=== PATIENT | male | born 1985 | race Caucasian/White ===

== ENCOUNTER 2021-01-03 15:54 | Emergency (ER) | payer SELFPAY ==
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
[2021-01-03 16:41] LABS: Basophils % 0.7 % (0-1.3); Hematocrit 43.7 % (39.6-49.0); Lymphocytes % 12.8 % (15.3-44.8); MPV 7.2 fL (7.6-11.3); RBC Red Blood Cell Count 4.73 M/uL (4.33-5.43)
[2021-01-03 17:01] LABS: ALT/SGPT 22 U/L (12-78); Albumin 3.3 g/dL (3.4-5.0); Alkaline Phosphatase 92 U/L (45-117); BUN Blood Urea Nitrogen 7 mg/dL (7-18); Bicarbonate 29 mmol/L (21-32); Bilirubin Direct < 0.1 mg/dL (0-0.2); Bilirubin Total 0.3 mg/dL (0.2-1.0); Glucose Level 127 mg/dL (74-106); Lipase 44 U/L (73-393); Protein, Total 7.8 g/dL (6.4-8.2); Sodium Level 137 mmol/L (136-145)
[2021-01-03 17:02] LABS: AST/SGOT 20 U/L (15-37); Potassium 4.2 mmol/L (3.5-5.1)
[2021-01-03] MEDS ORDERED: ONDANSETRON 4 MG/2 ML VIAL ONE (17:25)
[2021-01-03] MEDS ORDERED: FENTANYL CITR 100 MCG/2 ML ONE (17:25)
--- NOTE | 2021-01-03 17:45 | RAD REPORT ---
EXAM DESCRIPTION: CTAbdomen Pelvis W Contrast - 01/03/2021 5:28 pm CLINICAL HISTORY: Abdominal pain. lower abdominal pain COMPARISON: No comparisons TECHNIQUE: Biphasic CT imaging of the abdomen and pelvis was performed with 100 ml non-ionic IV cont rast. All CT scans are performed using dose optimization technique as appropriate and may include automated exposure control or mA/KV adjustment according to patient size. FINDINGS: The lung bases are clear. The liver, spleen, pancreas, adrenal glands and kidneys are within normal limits. No bowel obstruction, free air, free fluid or abscess. The appendix is normal. No evidence of signi ficant lymphadenopathy. No suspicious bony findings. There is evidence of mild fluid prominent blood vessels scrotal sac, incompletely assessed by CT IMPRESSION: No acute CT intra-abdominal or pelvic finding. Mild fluid and prominent vessels scrotal sac is incompletely assessed by CT. Follow-up ultrasound ass essment may be of value.
--- NOTE | 2021-01-03 18:46 | RAD REPORT ---
EXAM DESCRIPTION: US - Scrotum Testicles - 01/03/2021 5:57 pm CLINICAL HISTORY: scrotal pain Pain and swelling COMPARISON: No comparisons FINDINGS: The right testicle 4.3 x 3.2 x 3.1 cm. No intratesticular masses or evidence of testicular torsion. The left testicle 3.4 x 3.4 x 2.2 cm. No intratesticular masses or evidence of testicular torsion. The right epididymis appears enlarged with increased vascularity. Mild to moderate right-sided hydrocele with septations. IMPRESSION: Evidence of moderate right sided epididymitis. No testicular torsion.
--- NOTE | 2021-01-03 18:56 | ER ---
Nurse's Notes [facility] Name: Alejo Roland Age: 35 yrs Sex: Male : 1985 Arrival Date: 01/03/2021 Time: 15:58 Bed 20 Private MD: Diagnosis: Epididymitis Presentation: 01/03 16:20 Chief complaint: Patient states: abd pain x 3-4 days ago. Coronavirus screen: At this aa5 time, the client does not indicate any symptoms associated with coronavirus-19. Ebola Screen: Patient negative for fever greater than or equal to 101.5 degrees Fahrenheit, and additional compatible Ebola Virus Disease symptoms. Initial Sepsis Screen: Does the patient meet any 2 criteria? No. Patient's initial sepsis screen is negative. Does the patient have a suspected source of infection? No. Patient's initial sepsis screen is negative. Risk Assessment: Do you want to hurt yourself or someone else? Patient reports no desire to harm self or others. Onset of symptoms was December 2020. 16:20 Acuity: BEATRICE 3 aa5 16:20 Method Of Arrival: Ambulatory aa5 Historical: - Allergies: 16:20 Codeine (Upset stomach); aa5 - PMHx: 16:20 Hernia; aa5 - PSHx: 16:20 wrist sx; aa5 - Immunization history:: Adult Immunizations unknown. - Social history:: Smoking status: Patient denies any tobacco usage or history of. Screenin:34 Abuse screen: Denies threats or abuse. Denies injuries from another. Nutritional tr6 screening: No deficits noted. Tuberculosis screening: No symptoms or risk factors identified. Fall Risk None identified. Assessment: 17:34 General: Appears in no apparent distress. comfortable, slender, Behavior is calm, tr6 cooperative, appropriate for age. Pain: Complains of pain in lower abdomen to scrotum. Neuro: No deficits noted. Cardiovascular: No deficits noted. Respiratory: No deficits noted. GI: Bowel sounds Abd is soft Abd is non tender. : No deficits noted. EENT: No deficits noted. Derm: No deficits noted. Musculoskeletal: No deficits noted. Vital Signs: 16:20 BP 140 / 87; Pulse 117; Resp 18 S; Temp 98.4(TE); Pulse Ox 97% on R/A; Weight 72.57 kg aa5 (R); Height 5 ft. 10 in. (177.80 cm) (R); 17:33 BP 145 / 92; Pulse 82; Resp 18; Pulse Ox 100% on R/A; tr6 16:20 Body Mass Index 22.96 (72.57 kg, 177.80 cm) aa ED Course: 15:58 Patient arrived in ED. mr 16:20 Arm band placed on. aa5 16:21 Triage completed. aa5 16:26 Nick Grande PA is PHCP. jmm 16:26 Tyler Alfred MD is Attending Physician. jmm 16:37 Amanda Brewer, RAMÓN is Primary Nurse. tr6 17:28 CT Abd/Pelvis - IV Contrast Only In Process Unspecified. EDMS 17:34 Patient has correct armband on for positive identification. Bed in low position. Call tr6 light in reach. Side rails up X2. cardiac monitor technician on. Pulse ox on. NIBP on. Door closed. Warm blanket given. 17:34 No provider procedures requiring assistance completed. Inserted saline lock: 20 gauge tr6 in left antecubital area, using aseptic technique. 17:57 US Scrotum Testicles In Process Unspecified. EDMS 18:55 Cleveland Mcclure MD is Referral Physician. [facility] 19:09 IV discontinued, intact, bleeding controlled, No redness/swelling at site. Pressure tr6 dressing applied. Administered Medications: 17:11 Drug: Zofran (Ondansetron) 4 mg Route: IVP; Site: left antecubital; tr6 18:07 Follow up: Response: No adverse reaction; Pain is decreased tr6 17:12 Drug: fentaNYL (PF) 50 mcg Route: IVP; Site: left antecubital; tr6 18:07 Follow up: Response: No adverse reaction; Pain is decreased tr6 Outcome: 18:55 Discharge ordered by . yani 19:09 Discharged to home ambulatory. tr6 19:09 Condition: stable 19:09 Discharge instructions given to Instructed on discharge instructions, follow up and referral plans. no drinking with medication, medication usage, safety practices, Demonstrated understanding of instructions, follow-up care, medications, Prescriptions given X 2. 19:10 Patient left the ED. tr6 Signatures: Dispatcher [employer] EDMS Nick Grande PA PA jmm Rivera, Mary mr Eyal, Britney, RN RN aa5 Amanda Brewer, RN RN tr6
--- NOTE | 2021-01-03 18:56 | EDPHYS ---
Physician Documentation [facility] Name: Alejo Roland Age: 35 yrs Sex: Male : 1985 Arrival Date: 01/03/2021 Time: 15:58 Bed 20 Private MD: ED Physician Tyler Alfred HPI: 01/03 16:26 This 35 yrs old Male presents to ER via Ambulatory with complaints of jmm Abdominal Pain. 16:26 The patient presents with abdominal pain. Onset: The symptoms/episode began/occurred jmm gradually, 2 day(s) ago. The symptoms do not radiate. Associated signs and symptoms: Pertinent negatives: fever. The symptoms are described as achy. Modifying factors: The symptoms are alleviated by nothing, the symptoms are aggravated by nothing. This is a 35 year old male with no chronic medical conditions that presents to the ED with complaints of lower abdominal pain and scrotal swelling. Denies injury. . Historical: - Allergies: 16:20 Codeine (Upset stomach); aa5 - PMHx: 16:20 Hernia; aa5 - PSHx: 16:20 wrist sx; aa5 - Immunization history:: Adult Immunizations unknown. - Social history:: Smoking status: Patient denies any tobacco usage or history of. ROS: 16:26 Constitutional: Negative for fever, chills, and weight loss, Cardiovascular: Negative jmm for chest pain, palpitations, and edema, Respiratory: Negative for shortness of breath, cough, wheezing, and pleuritic chest pain. 16:26 Abdomen/GI: Positive for abdominal pain. 16:26 : Positive for testicular pain 16:26 All other systems are negative. Exam: 16:26 Constitutional: This is a well developed, well nourished patient who is awake, alert, jmm and in no acute distress. Head/Face: atraumatic. Eyes: EOMI, no conjunctival erythema appreciated ENT: Moist Mucus Membranes Neck: Trachea midline, Supple Chest/axilla: Normal chest wall appearance and motion. Cardiovascular: Regular rate and rhythm. No edema appreciated Respiratory: Normal respirations, no respiratory distress appreciated 16:26 Back: Normal ROM Skin: General appearance color normal MS/ Extremity: Moves all extremities, no obvious deformities appreciated, no edema noted to the lower extremities Neuro: Awake and alert, normal gait Psych: Behavior is normal, Mood is normal, Patient is cooperative and pleasant 16:26 Abdomen/GI: Inspection: abdomen appears normal, Bowel sounds: normal, Palpation: soft, mild abdominal tenderness, in the right lower quadrant and left lower quadrant. Vital Signs: 16:20 BP 140 / 87; Pulse 117; Resp 18 S; Temp 98.4(TE); Pulse Ox 97% on R/A; Weight 72.57 kg aa5 (R); Height 5 ft. 10 in. (177.80 cm) (R); 17:33 BP 145 / 92; Pulse 82; Resp 18; Pulse Ox 100% on R/A; tr6 16:20 Body Mass Index 22.96 (72.57 kg, 177.80 cm) aa5 MDM: 16:26 Patient medically screened. diaz 18:53 Data reviewed: vital signs, nurses notes. Counseling: I had a detailed discussion with yani the patient and/or guardian regarding: the historical points, exam findings, and any diagnostic results supporting the discharge/admit diagnosis, lab results, radiology results, the need for outpatient follow up, to return to the emergency department if symptoms worsen or persist or if there are any questions or concerns that arise at home. ED course: Patient is alert and non toxic in appearance in the ED. I do not suspect torsion. CT negative for an acute process. Patient advised to follow up with urology and otherwise given strict return precautions. Patient understood and agrees with plan of care. . 06/05 16:26 Order name: Basic Metabolic Panel; Complete Time: 17:03 [facility] 01/03 16:26 Order name: CBC with Diff; Complete Time: 16:45 [facility] 01/03 16:26 Order name: Hepatic Function; Complete Time: 17:03 [facility] 01/03 16:26 Order name: Lipase; Complete Time: 17:03 [facility] 01/03 16:52 Order name: US Scrotum Testicles; Complete Time: 18:47 [facility] 01/03 16:52 Order name: CT Abd/Pelvis - IV Contrast Only; Complete Time: 17:51 [facility] 01/03 16:26 Order name: IV Saline Lock; Complete Time: 16:37 [facility] 01/03 16:26 Order name: Labs collected and sent; Complete Time: 16:37 [facility] Administered Medications: 17:11 Drug: Zofran (Ondansetron) 4 mg Route: IVP; Site: left antecubital; tr6 18:07 Follow up: Response: No adverse reaction; Pain is decreased tr6 17:12 Drug: fentaNYL (PF) 50 mcg Route: IVP; Site: left antecubital; tr6 18:07 Follow up: Response: No adverse reaction; Pain is decreased tr6 Disposition: 01/03/21 18:55 Discharged to Home. Impression: Epididymitis. - Condition is Stable. - Discharge Instructions: Epididymitis. - Prescriptions for Levaquin 750 mg Oral Tablet - take 1 tablet by ORAL route once daily for 10 days; 10 tablet. orphenadrine citrate 100 mg Oral Tablet Sustained Release - take 1 tablet by ORAL route 2 times per day As needed; 20 tablet. - Medication Reconciliation Form, Thank You Letter, Antibiotic Education, Prescription Opioid Use form. - Follow up: Cleveland Mcclure MD; When: 2 - 3 days; Reason: Recheck today's complaints, Continuance of care, Re-evaluation by your physician. Addendum: 01/06/2021 07:44 Co-signature as Attending Physician, Tyler Alfred MD I agree with the assessment and c mckeon plan of care. Signatures: Dispatcher [employer] EDTyler Saenz MD MD cha Mickail, Joel, PA PA jmm Britney Birch, RN RN aa5 Amanda Brewer, RAMÓN RN tr6 Corrections: (The following items were deleted from the chart) 01/03 19:10 18:55 01/03/2021 18:55 Discharged to Home. Impression: Epididymitis. Condition is tr6 Stable. Forms are Medication Reconciliation Form, Thank You Letter, Antibiotic Education, Prescription Opioid Use. Follow up: Cleveland Mcclure; When: 2 - 3 days; Reason: Recheck today's complaints, Continuance of care, Re-evaluation by your physician. yani
[2021-01-03 19:16] VITALS: TEMP 98.4
[2021-01-03 19:17] VITALS: BP 145/92; O2SAT 100
== END 2021-01-03 19:10 | disposition home or self-care (01) ==
LOC: ER 15:54
DX: N45.1 Epididymitis (principal); Z88.5 Allergy status to narcotic agent
CPT/HCPCS: 36415; 74177; 76870; 80048; 80076; 83690; 85025; 96374; 96375; 99284; J2405; J3010; Q9967